=== PATIENT | male | born 1970 ===

== ENCOUNTER 2021-02-24 15:37 | Emergency (ER) | payer SELFPAY ==
--- NOTE | 2021-02-24 16:15 | Emergency Department Report ---
- General Chief Complaint: Upper Respiratory Infection Stated Complaint: HEADACHE COUGH X 5 DAYS Time Seen by Provider: 02/24/21 16:01 Source: patient Mode of arrival: Ambulatory Limitations: No Limitations - History of Present Illness Initial Comments: Patient presents with a cough and headache for 5 days. He has had subjective fevers and chills along with muscle aches and body aches. He has had a productive cough producing yellowish phlegm. There is no hemoptysis. He has had no known sick contact. He has not been out of the country lately. He has had no vomiting or diarrhea. There are no urinary complaints. His headache is global. His muscle aches and body aches do seem to wax and wane. Has not noticed aggravating or alleviating factors. He has used Tylenol o [id number] with some improvement. - Related Data Previous Rx's Medication Instructions Recorded Last Taken Type Benzonatate [Tessalon Perles] 100 mg PO Q8HR #21 capsule 02/24/21 Unknown Rx Ibuprofen [Motrin] 800 mg PO Q8HR PRN #30 tablet 02/24/21 Unknown Rx Allergies Allergy/AdvReac Type Severity Reaction Status Date / Time No Known Allergies Allergy Verified 02/24/21 15:47 ED Review of Systems ROS: Stated complaint: HEADACHE COUGH X 5 DAYS Other details as noted in HPI Comment: All other systems reviewed and negative Constitutional: see HPI Eyes: denies: eye pain ENT: denies: throat pain Respiratory: see HPI Cardiovascular: denies: chest pain Endocrine: denies: unexplained weight loss Gastrointestinal: denies: vomiting, diarrhea Genitourinary: denies: dysuria Musculoskeletal: as per HPI, myalgia Skin: denies: rash Neurological: as per HPI Hematological/Lymphatic: denies: easy bruising ED Past Medical Hx - Past Medical History Previous Medical History?: No - Family History Family history: no significant - Social History Smoking Status: Never Smoker - Medications Home Medications: Home Medications Medication Instructions Recorded Confirmed Last Taken Type Benzonatate [Tessalon Perles] 100 mg PO Q8HR #21 capsule 02/24/21 Unknown Rx Ibuprofen [Motrin] 800 mg PO Q8HR PRN #30 tablet 02/24/21 Unknown Rx ED Physical Exam - General Limitations: No Limitations, Other (Pulse ox noted and normal) General appearance: alert, in no apparent distress - Head Head exam: Present: atraumatic, normocephalic - Eye Eye exam: Present: normal appearance, EOMI - ENT ENT exam: Present: normal orophraynx, normal external ear exam - Neck Neck exam: Present: normal inspection - Respiratory Respiratory exam: Present: normal lung sounds bilaterally. Absent: respiratory distress - Cardiovascular Cardiovascular Exam: Present: regular rate, normal rhythm - GI/Abdominal GI/Abdominal exam: Present: soft. Absent: distended, tenderness - Extremities Exam Extremities exam: Present: normal capillary refill. Absent: calf tenderness - Back Exam Back exam: Absent: CVA tenderness (R), CVA tenderness (L) - Neurological Exam Neurological exam: Present: alert, oriented X3, normal gait. Absent: motor sensory deficit - Psychiatric Psychiatric exam: Present: normal affect, normal mood - Skin Skin exam: Present: warm, dry ED Course Vital Signs 02/24/21 15:43 Temperature 98.5 F Pulse Rate 68 Respiratory 16 Rate Blood Pressure 119/78 O2 Sat by Pulse 98 Oximetry - Reevaluation(s) Reevaluation #1: 02/24/21 16:15 Patient was discharged ED Medical Decision Making - Medical Decision Making Patient presented with 5 days of viral URI symptoms. He did not have evidence of meningitis clinically. He had no evidence of pharyngitis. There are no adventitial breath sounds to suggest pneumonia. He had no petechial or purpuric rash. There is no GI complaint. Whether or not this is coronavirus or influenza or some other virus is unclear. Regardless, emergent testing is not indicated at this time. He was treated symptomatically and referred to his PCP for recheck. There is no evidence of acute bacterial infection. Critical Care Time: No Critical care attestation.: If time is entered above; I have spent that time in minutes in the direct care of this critically ill patient, excluding procedure time. ED Disposition Clinical Impression: Viral URI, Generalized headache Disposition: HOME / SELF CARE / HOMELESS Is pt being admited?: No Condition: Stable Instructions: Viral Respiratory Infection, [id number], Form - Headache Record Additional Instructions: Continue to use Tylenol for fever and pain. Drink plenty of water. Return for problems. Isolate at home until your symptoms have abated for 7 days minimum. Consider getting tested as an outpatient for coronavirus. Prescriptions: Ibuprofen [Motrin] 800 mg PO Q8HR PRN #30 tablet PRN Reason: myalgia Benzonatate [Tessalon Perles] 100 mg PO Q8HR #21 capsule Referrals: PRIMARY CARE, [Referring] - 3-5 Days MICHEAL BARAHONA MD [Staff Physician] - 3-5 Days Print Language: TAJIK
[2021-02-24 16:56] VITALS: BP 114/79
== END 2021-02-24 16:56 | disposition home or self-care (01) ==
LOC: ED 15:37
DX: J06.9 Acute upper respiratory infection, unspecified (principal); R51.9 Headache, unspecified
CPT/HCPCS: 99282